=== PATIENT | female | born 1950 | race African-American/Black ===

== ENCOUNTER 2025-01-14 17:32 | Emergency (ER) | payer MEDICARE, MEDICAID, SELFPAY ==
[2025-01-14 17:36] VITALS: BP 134/77; PULSE 134; RESP 20; TEMP 39.1; O2SAT 93
--- NOTE | 2025-01-14 18:15 | XR_ITS ---
Examination: AP chest single view Technique one AP portable upright chest single view Exam date and time: January 14, 2025 at 1844 hrs. Comparison April 14, 2020 Indications: Sepsis today Findings: Normal heart size Mild vascular congestion. No lobar pneumonia Prominent osteopenia Impression: No pneumonia identified
--- NOTE | 2025-01-14 18:15 | EKG_ITS ---
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
--- NOTE | 2025-01-14 18:16 | EDNOTE_ITS ---
ED General RME/HPI General Chief complaint: General Adult/Misc Complain Stated complaint: SEPSIS Time Seen by Provider: 01/14/25 17:57 Arrival date/time: 01/14/25 17:32 RME / HPI RME / HPI narrative: 74-year-old female patient with significant history of dementia, diabetes mellitus CVA, with right-sided residual paralysis, [facility]. Onset of symptoms earlier today. On my initial evaluation patient is denying any complaints. Sepsis alert was initiated right away due to fever and tachycardia. Related Data Home Medications ?Medication ?Instructions ?Recorded ?Confirmed sitagliptin phosphate 100 mg 100 mg PO QDAY DIABETES # 0 tabs 10/07/15 11/06/19 tablet (Januvia) benztropine 0.5 mg tablet 0.5 mg PO BID 06/27/1811/06 atorvastatin 20 mg tablet 20 mg PO QDAY 10/22/1911/06 aripiprazole 30 mg tablet 30 mg PO QDAY 11/06/1911/06 ferrous sulfate 325 mg (65 mg 325 mg PO BID 11/06/19 0 11/06/19 iron) tablet gabapentin 300 mg capsule 100 mg PO QDAY 11/06/1910/25 metformin 1,000 mg tablet 1,000 mg PO BID 11/06/1910/25 Previous Rx's ?Medication ?Instructions ?Recorded acetaminophen 325 mg tablet (Mapap 650 mg (2 x 325 mg) PO Q6H PRN 11/10/19 (acetaminophen)) TEMP > 101.5 #10 tabs bisacodyl 5 mg tablet,delayed 10 mg (2 x 5 mg) PO QDAY PRN 11/10/19 release Constipation #10 tabs divalproex 250 mg tablet,extended 3 tab PO DAILY #0 ta bs 11/10/19 release 24 hr docusate sodium 100 mg capsule 100 mg PO BID #10 caps 11/10/19 hydrocodone 10 mg-acetaminophen 1 tab PO Q6H PRN pain (scale score 11/10/19 325 mg tablet ([place]) 7-10) #10 tabs hydrocodone 5 mg-acetaminophen 325 1 tab PO Q6H PRN pa in (scale score 11/10/19 mg tablet ([place]) 4-6) #10 tabs sennosides 8.6 mg-docusate sodium 1 tab PO HS PRN Cons tipation #10 11/10/19 50 mg tablet (DOK Plus) tabs apixaban 2.5 mg tablet (Eliquis) 2.5 mg PO BID #60 tab s 11/11/19 sulfamethoxazole 800 1 tab PO Q12H #20 tabs 04/14 mg-trimethoprim 160 mg tablet (Bactrim DS) oseltamivir 6 mg/mL oral 75 mg (12.5 mL) PO BID 5 day s #125 01/14/25 suspension (Tamiflu) mL Allergies Allergy/AdvReac Type Severity Reaction Status Date / Time amoxicillin Allergy Severe Hives Verified 11/07/19 09:55 Review of Systems Review of Systems Narrative Review of Systems: Review of system reviewed and within normal limits except mentioned in HPI ED Exam Narrative Physical exam: VITAL SIGNS: Reviewed. GENERAL APPEARANCE: Alert and interactive, follows commands, no acute distress, HEAD AND FACE: Non-traumatic. ENT: PERRL, pink conjunctivitis, eyelid no trauma, Mucous membrane moist. NECK: Supple, nontender, no nuchal rigidity. CHEST: No tenderness, no crepitus, no paradoxical movement, no retractions. LUNGS: Clear, well ventilated, symmetric, no rales, no wheezing, no ronchi, no stridor, good breath sounds bilaterally. HEART: Regular rate, regular rhythm, no murmur, no gallops. ABDOMEN: Soft, positive bowel sounds, nondistended, no guarding, nontender, no rebound, no masses, RECTAL: Deferred. GENITAL: Deferred. NEUROLOGICAL: Gross motor function intact sensory function intact on the left, residual weakness noted on the right upper and lower extremities, MUSCULOSKELETAL: low back nontender, full range of motion. EXTREMITIES: Nontender, full range of motion. SKIN: Color pink, dry, no rash, no lacerations, no abrasions, no contusions. LYMPHATICS: Deferred. Course Quality Measures none Orders Category Date Time Status Bedside COVID-19 Antigen Test NOW Care 01/14/25 20:13 Active Bedside Influenza A&B Antigen Test NOW Care 01/14/25 20:13 Completed [place] [employer] Operator STAT Care 01/14/25 18:15 Active Continuous Pulse Oximetry STAT Care 01/14/25 18:15 Completed EKG (ED ONLY) *Do not use* NOW Care 01/14/25 18:15 Completed Rivera [Urinary Catheter] QS Care 01/14/25 20:40 Active Insert IV NOW Care 01/14/25 18:15 Active NPO STAT Care 01/14/25 18:15 Active Strict Intake and Output Routine Care 01/14/25 18:15 Ordered EKG (ED Only) Stat Exams 01/14/25 18:15 Draft XR chest 1V SEPSIS PROTOCOL Stat Exams 01/14/25 18:15 Completed B-Type Natriuretic Peptide Stat Lab 01/14/25 17:50 Completed Blood Culture (Lab) Stat Lab 01/14/25 17:52 Received CBC Stat Lab 01/14/25 17:50 Completed Comprehensive Metabolic Panel Stat Lab 01/14/25 17:50 Completed LDH (Lactate Dehydrogenase) Stat Lab 01/14/25 17:50 Completed Lactate (Lactic Acid) Stat Lab 01/14/25 17:50 Completed Lactic Acid, 3 HR Stat Lab 01/14/25 21:46 Completed Lipase Stat Lab 01/14/25 17:50 Completed Magnesium Stat Lab 01/14/25 17:50 Completed Partial Thromboplastin Time Stat Lab 01/14/25 17:50 Completed Phosphorous Stat Lab 01/14/25 17:50 Completed Procalcitonin Stat Lab 01/14/25 17:50 Completed Prothrombin Time with INR Stat Lab 01/14/25 17:50 Completed Troponin I Stat Lab 01/14/25 17:50 Completed Urinalysis Stat Lab 01/14/25 20:40 Completed Urine Culture Stat Lab 01/14/25 20:35 Received Acetaminophen Ivpb [Ofirmev Inj] Med 01/14/25 18:49 Discontinued 1,000 mg in 100 ml IV X1 Acetaminophen Tab [Tylenol ES Tab] Med 01/14/25 18:14 Discontinued 1,000 mg PO X1 ONE Oseltamivir [Tamiflu] Med 01/14/25 21:21 Discontinued 75 mg PO X1 ONE Ringers Lactated 1000 ml [Lactated Ringers] 1,000 ml Med 01/14/25 18:15 Discontinued IV 999 mls/hr cefTRIAXone/D5w 1gm IV premix [Rocephin/D5w 1gm IV Med 01/14/25 18:15 Discontinued premix] 1 gm in 50 ml IV X1 Oxygen Delivery NOW RT 01/14/25 18:15 Active Vital Signs Vital signs: Vital Signs Temperature 102.4 F H 01/14/25 17:36 Pulse Rate 134 H 01/14/25 17:36 Respiratory Rate 20 01/14/25 17:36 Blood Pressure 134/77 H 01/14/25 17:36 Pulse Oximetry (%) 93 L 01/14/25 17:36 Oxygen Delivery Method Room Air 01/14/25 17:36 [facility] Patient data External records reviewed:: None Clinical information provided by:: patient and EMS Social determinants that could affect healthcare access:: none Patient has the following chronic illnesses:: CVA How is presenting disease/condition affected by chronic disease/condition?: e xacerbated by Evaluation data The following diagnostics were reviewed and interpreted by me:: lab results, radiology exam(s) and EKG tracing(s) Lab and/or radiology exams considered but not ordered:: None Interpretation Summary: EKG showed sinus tachycardia, ventricular rate of 124 bpm, no ST segment elevation depression noted. Medications Medications considered but not ordered:: Plan Medication administrations:: Medication Administration History Discontinued Medications Acetaminophen (Acetaminophen 500 Mg Tablet) 1,000 mg PO X1 ONE Stop: 01/14/25 18:15 Last Admin: 01/14/25 18:15 Dose: Not Given Documented By: SPENCER Non-Admin Reason: Discontinued Lactated Ringer's (Lactated Ringers) 1,000 mls @ 999 mls/hr IV .Q1H1M ONE Stop: 01/14/25 19:15 Last Infusion: 01/14/25 21:44 Dose: Infused Documented By: Admin: 01/14/25 18:38 Dose: 999 mls/hr Documented By: SPENCER Ceftriaxone Sodium/Dextrose (Rocephin/D5w 1gm Iv Premix) 1 gm in 50 mls @ 100 mls/hr IV X1 ONE Stop: 01/14/25 18:44 Last Infusion: 01/14/25 19:06 Dose: Infused Documented By: Admin: 01/14/25 18:36 Dose: 100 mls/hr Documented By: SPENCER Acetaminophen (Ofirmev Inj) 1,000 mg in 100 mls @ 250 mls/hr IV X1 ONE Stop: 01/14/25 19:12 Last Infusion: 01/14/25 20:15 Dose: Infused Documented By: Admin: 01/14/25 19:36 Dose: 250 mls/hr Documented By: CS Oseltamivir Phosphate (Oseltamivir 75 Mg Capsule) 75 mg PO X1 ONE Stop: 01/14/25 21:22 Last Admin: 01/14/25 21:34 Dose: Not Given Documented By: BD Non-Admin Reason: Other, see note Tamiflu, ceftriaxone IV, and IV fluids for hydration Consultations Consultation(s) initiated? (list below): No Diagnosis Differential Diagnosis ED Complaint MDM: Sepsis, UTI, influenza Most likely diagnosis given after review of the tests above:: Influenza Admission Indicated Admission indicated?: not indicated Explain why admission is indicated or not indicated:: Stable Admission Request Was there a request for admission?: No Disposition Plan Disposition Plan: Discharge Discharge Attestation Discharge Attestation: Patient condition: Stable Medical Decision Making MDM Narrative MDM Narrative: 74-year-old female patient with significant history of dementia, diabetes mellitus CVA, with right-sided residual paralysis, [facility]. Onset of symptoms earlier today. On my initial evaluation patient is denying any complaints. Sepsis alert was initiated right away due to fever and tachycardia. Patient workup today significant for influenza A. No leukocytosis, chest x-ray no infiltrates no pneumothorax pneumothorax, no UTI noted. CMP unremarkable except for a sodium 129 blood sugar of 442, patient received 1 L of IV fluids, Tamiflu, and repeat blood sugar was noted to be 350. There is no sign of diabetic ketoacidosis. Patient is discharged stable. Differential Diagnosis Differential Diagnosis: Sepsis, UTI, influenza Lab Data 01/14/25 17:50 01/14/25 17:50 Labs: Lab Results 01/14/25 01/14/25 01/14/25 Range/Units 17:50 20:40 21:46 WBC 7.6 (3.6-11.0) Thou/mm3 RBC 4.31 (4.00-5.20) Miln/mm3 Hgb 14.3 (12.0-16.0) g/dL Hct 40.3 (36.0-46.0) % MCV 94 (80-100) fL MCH 33.2 (25.0-35.0) pg MCHC 35.5 (31.0-37.0) g/dl RDW Std Deviation 43.8 (36.4-46.3) fL Plt Count 154 (140-440) Thou/mm3 Neut % (Auto) 75 (37-80) % Lymph % (Auto) 15 (10-50) % Mineral % (Auto) 10 (0-12) % Eos % (Auto) 0 (0-10) % Baso % (Auto) 0 (0-2.5) % Neut # (Auto) 5.7 (1.8-7.7) Thou/mm3 Lymph # (Auto) 1.1 (1.0-4.8) Thou/mm3 Mineral # (Auto) 0.7 (0.0-0.8) Thou/mm3 Eos # (Auto) 0.0 (0.0-0.5) Thou/mm3 Baso # (Auto) 0.0 (0.0-0.2) Thou/mm3 Immature Gran # (Auto) 0.02 H (0.00-0.00) Thou/mm3 Absolute Nucleated RBC 0.00 (0.00-0.00) Thou/mm3 Immature Gran % 0 (0-0) % Nucleated RBC % 0 (0) /100 WBC PT 11.4 (9.0-12.2) Seconds INR 1.0 (0.9-1.3) APTT 27.1 (22.0-36.0) Seconds Sodium 129 L (136-145) mMol/L Potassium 4.4 (3.4-5.1) mMol/L Chloride 98 (98-107) mMol/L Carbon Dioxide 22.7 (20.0-31.0) mMol/L Anion Gap 8 (7-16) BUN 15 (9-23) mg/dL Creatinine 1.0 (0.6-1.3) mg/dL Estim Creat Clear Calc Not Performed. eGFR 59 L (60 - ) See Note BUN/Creatinine Ratio 15 (12-20) Ratio Glucose 442 H* (74-106) mg/dL Calculated Osmolality 278 (275-295) Lactic Acid 2.2 H 1.8 (0.4-2.0) mMol/L Calcium 8.9 (8.3-10.6) mg/dL Corrected Calcium 9.2 (8.5-10.1) mg/dL Phosphorus 3.1 (2.4-5.1) mg/dL Magnesium 1.6 (1.6-2.6) mg/dL Total Bilirubin 0.8 (0.3-1.2) mg/dL AST 249 H (0-34) U/L ALT 97 H (10-49) U/L Alkaline Phosphatase 96 (46-116) U/L Lactate Dehydrogenase 323 H (120-246) U/L Troponin I < 0.020 (0.0-0.045) ng/mL B-Natriuretic Peptide 42 (0-100) pg/mL Total Protein 7.6 (5.7-8.2) gm/dL Albumin 3.6 (3.4-4.8) gm/dL Globulin 4.0 H (2.3-3.5) gm/dL Albumin/Globulin Ratio 0.9 L (1.2-2.2) Lipase 56 H (12-53) U/L Procalcitonin 0.20 (0.0-0.49) ng/ml Ur Collection Type Clean Catch Urine Color Lt-Yellow (Lt Yel-Yel) Urine Clarity Clear (Clear/Hazy) Urine pH 6.5 (5.0-7.0) Ur Specific [place] 1.025 (1.001-1.035) Urine Protein Negative (Neg - Trace) Urine Glucose (UA) 4+ A (Negative) Urine Ketones 1+ A (Negative) Urine Blood 2+ A (Negative) Urine Nitrite Positive (Negative) Urine Bilirubin Negative (Negative) Urine Urobilinogen (Auto) Negative (0.0-1.0) mg/dL Ur Leukocyte Esterase Negative (Negative) Urine RBC 1 (0-3) /hpf Urine WBC < 1 (0-5) /hpf Ur Squamous Epith Cells 0 (0-5) /hpf Urine Bacteria None (None) Discharge Plan Plan Patient Disposition: HOME (Self Care) Disposition Comment: Stable Prescriptions/Referrals Prescriptions/Med Rec: New oseltamivir [Tamiflu] 6 mg/mL suspension for reconstitution 75 mg PO BID 5 Days Qty: 125 0RF No Action Januvia 100 MG tablet 100 mg PO QDAY Qty: 0 benztropine 0.5 mg Tablet 0.5 mg PO BID atorvastatin 20 mg Tablet 20 mg PO QDAY ferrous sulfate 325 mg (65 mg iron) Tablet 325 mg PO BID metformin 1,000 mg Tablet 1,000 mg PO BID gabapentin 300 mg Capsule 100 mg PO QDAY aripiprazole 30 mg Tablet 30 mg PO QDAY acetaminophen [Mapap (acetaminophen)] 325 mg Tablet 650 mg PO Q6H PRN (Reason: TEMP > 101.5) Qty: 10 0RF sennosides-docusate sodium [DOK Plus] 8.6-50 mg Tablet 1 tab PO HS PRN (Reason: Constipation) Qty: 10 0RF docusate sodium 100 mg Capsule 100 mg PO BID Qty: 10 0RF bisacodyl 5 mg Tablet,Delayed Release (Dr/Ec) 10 mg PO QDAY PRN (Reason: Constipation) Qty: 10 0RF hydrocodone-acetaminophen [[place]] 5-325 mg tablet 1 tab PO Q6H MDD 4 tabs PRN (Reason: pain (scale score 4-6)) Qty: 10 0RF hydrocodone-acetaminophen [[place]] 10-325 mg tablet 1 tab PO Q6H MDD 4 tabs PRN (Reason: pain (scale score 7-10)) Qty: 10 0RF divalproex 250 mg Tablet Extended Release 24 Hr 3 tab PO DAILY Qty: 0 0RF Eliquis 2.5 mg Tablet 2.5 mg PO BID Qty: 60 0RF sulfamethoxazole-trimethoprim [Bactrim DS] 800-160 mg tablet 1 tab PO Q12H Qty: 20 0RF Referrals: Mariama Franco MD [Primary Care Provider] - In 1 week Problem List Clinical Impression: Influenza Patient/Caregiver Discharge Instructions Discharge Activity: activity as tolerated Education Materials: ED Influenza (Adult) Additional Instructions: Thank you for the opportunity for serving you today. You are stable for discharged . 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
--- NOTE | 2025-01-14 18:26 | PC.NURSE ---
Spoke with pt's dtr Samantha. She states she last saw the pt in July ([place]) pt's state of mind at that time was that she understood who the family is and that she lives in a SNF, but otherwise she is living in the past . Pt also has not walked for years according to dtr, tends to be in be all day as far as she knows.
[2025-01-14 18:33] LABS: Lactate (Lactic Acid) 2.2 mMol/L (0.4-2.0)
[2025-01-14] MEDS: cefTRIAXone/D5w 1gm IV premix 1 GM/50 ML BAG IV (18:36)
[2025-01-14 18:38] LABS: Basophils % (Auto) 0 % (0-2.5); Eosinophils % (Auto) 0 % (0-10); Hematocrit 40.3 % (36.0-46.0); Hemoglobin 14.3 g/dL (12.0-16.0); Immature Granulocytes % (Auto) 0 % (0-0); Immature Granulocytes Auto 0.02 Thou/mm3 (0.00-0.00); Lymphocytes # (Auto) 1.1 Thou/mm3 (1.0-4.8); Lymphocytes % (Auto) 15 % (10-50); Mean Corpuscular HGB Conc 35.5 g/dl (31.0-37.0); Mean Corpuscular Hemoglobin 33.2 pg (25.0-35.0); Mean Corpuscular Volume 94 fL (80-100); Monocytes # (Auto) 0.7 Thou/mm3 (0.0-0.8); Monocytes % (Auto) 10 % (0-12); Neutrophils # (Auto) 5.7 Thou/mm3 (1.8-7.7); Neutrophils % (Auto) 75 % (37-80); Nucleated Red Blood Cell % 0 /100 WBC (0); Platelet Count 154 Thou/mm3 (140-440); RDW Standard Deviation 43.8 fL (36.4-46.3); Red Blood Count 4.31 Miln/mm3 (4.00-5.20); White Blood Count 7.6 Thou/mm3 (3.6-11.0)
[2025-01-14] MEDS: RINGERS LACTATED 1000 ML 1,000 ML 999 ML IV (18:38)
[2025-01-14 18:46] LABS: Partial Thromboplastin Time 27.1 Seconds (22.0-36.0); Prothrombin Time 11.4 Seconds (9.0-12.2)
[2025-01-14 18:58] LABS: B-Type Natriuretic Peptide 42 pg/mL (0-100)
[2025-01-14 19:21] LABS: Alanine Aminotransferase 97 U/L (10-49); Albumin, Serum 3.6 gm/dL (3.4-4.8); Albumin/Globulin Ratio 0.9 (1.2-2.2); Alkaline Phosphatase 96 U/L (46-116); Anion Gap 8 (7-16); Aspartate Amino Transferase 249 U/L (0-34); BUN/Creatinine Ratio 15 Ratio (12-20); Bilirubin,Total 0.8 mg/dL (0.3-1.2); Blood Urea Nitrogen 15 mg/dL (9-23); Calcium 8.9 mg/dL (8.3-10.6); Calcium (Corrected) 9.2 mg/dL (8.5-10.1); Carbon Dioxide 22.7 mMol/L (20.0-31.0); Chloride 98 mMol/L (98-107); LDH (Lactate Dehydrogenase) 323 U/L (120-246); Lipase 56 U/L (12-53); Magnesium 1.6 mg/dL (1.6-2.6); Osmolality,Calculated 278 (275-295); Phosphorous 3.1 mg/dL (2.4-5.1); Potassium 4.4 mMol/L (3.4-5.1); Sodium 129 mMol/L (136-145); Total Protein 7.6 gm/dL (5.7-8.2); Troponin I < 0.020 ng/mL (0.0-0.045); eGFR 59 See Note
[2025-01-14 19:23] LABS: Glucose 442 mg/dL (74-106)
[2025-01-14] MEDS: ACETAMINOPHEN IVPB 1,000 MG/100 ML VIAL 250 MG IV (19:36)
[2025-01-14 20:00] VITALS: BP 115/52; PULSE 117; RESP 19; TEMP 36.9; O2SAT 95
[2025-01-14 20:21] VITALS: PULSE 113; RESP 18; RESP 96
[2025-01-14 20:24] VITALS: BMI 20.1
[2025-01-14 21:20] LABS: Collection Type, Urine Clean Catch; Squamous Epithelial Cell,Urine 0 /hpf (0-5)
[2025-01-14 21:29] LABS: Reflex Lactate? Y
--- NOTE | 2025-01-14 21:32 | PC.NURSE ---
attempted to give pt tamiflu, pt was not able to follow commands open mouth or sip WATER TO LETHARGIC
[2025-01-14 21:33] LABS: Bilirubin,Urine Negative (Negative); Blood,Urine 2+ (Negative); Clarity,Urine Clear (Clear/Hazy); Color,Urine Lt-Yellow (Lt Yel-Yel); Glucose, Urine 4+ (Negative); Ketones,Urine 1+ (Negative); Leukocyte Esterase,Urine Negative (Negative); Nitrite,Urine Positive (Negative); PH,Urine 6.5 (5.0-7.0); Protein,Urine Negative (Neg - Trace); RBC,Urine 1 /hpf (0-3); Specific Gravity,Urine 1.025 (1.001-1.035); Urobilinogen,Urine Negative mg/dL (0.0-1.0); WBC,Urine < 1 /hpf (0-5)
[2025-01-14 22:00] VITALS: BP 109/59; PULSE 91; RESP 16; TEMP 36.9; O2SAT 98
[2025-01-14 22:10] LABS: Lactic Acid, 3 HR 1.8 mMol/L (0.4-2.0)
[2025-01-14 23:59] VITALS: BP 101/64; PULSE 92; RESP 18; TEMP 37; O2SAT 98
[2025-01-15 01:00] VITALS: BP 96/56; PULSE 99; RESP 16; TEMP 36.9; O2SAT 97
== END 2025-01-15 01:23 | disposition home or self-care (01) ==
PROVIDERS: Nurse Practitioner Family; Emergency Provider Emergency Medicine; PCP Hospitalist
DX: J11.1 Influenza due to unidentified influenza virus with other respiratory manifestations (principal); E11.9 Type 2 diabetes mellitus without complications; F03.90 Unspecified dementia, unspecified severity, without behavioral disturbance, psychotic disturbance, mood disturbance, and anxiety; I69.351 Hemiplegia and hemiparesis following cerebral infarction affecting right dominant side; R00.0 Tachycardia, unspecified
CPT/HCPCS: 51702; 36415; 71045; 80053; 81001; 83605; 83615; 83690; 83735; 83880; 84100; 84145; 84484; 85025; 85610; 85730; 87040; 87086; 87400; 87811; 93005; 96361; 96365; 96367; 99284; J0131; J0696; J7120